=== PATIENT | female | born 1980 | race American Indian/Alaskan Native ===

== ENCOUNTER 2018-12-14 07:49 | Emergency (ER) | payer MEDICAID, OTHER ==
[2018-12-14 08:17] VITALS: BP 117/70
[2018-12-14] MEDS ORDERED: IBUPROFEN PO ONE (10:17)
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
== END 2018-12-14 10:54 | disposition home or self-care (01) ==
LOC: ED 07:49
DX: R51 Headache (principal); I10 Essential (primary) hypertension; Z87.891 Personal history of nicotine dependence; V89.2XXA Person injured in unspecified motor-vehicle accident, traffic, initial encounter; Y93.89 Activity, other specified; Y92.488 Other paved roadways as the place of occurrence of the external cause; Y99.8 Other external cause status
CPT/HCPCS: 99282

== ENCOUNTER 2019-09-14 08:43 | Emergency (ER) | payer BC ==
--- NOTE | 2019-09-14 09:24 | XRay Report ---
CHEST 2 VIEWS INDICATION / CLINICAL INFORMATION: Shortness of breath and cough for 2 days. COMPARISON: 02/23/2014. FINDINGS: SUPPORT DEVICES: None. HEART / MEDIASTINUM: The heart size and pulmonary vasculature are normal. LUNGS / PLEURA: No significant pulmonary or pleural abnormality. No pneumothorax. ADDITIONAL FINDINGS: No significant additional findings. IMPRESSION: No acute abnormality or significant change. Signer Name: Raghu Castorena MD Signed: 09/14/2019 9:20 AM Workstation Name: [email or web address]
[2019-09-14 11:54] VITALS: BP 119/68
--- NOTE | 2019-09-14 12:02 | Emergency Department Report ---
- General Chief Complaint: Upper Respiratory Infection Stated Complaint: CHEST PAIN/SOB Time Seen by Provider: 09/14/19 11:37 Source: patient Mode of arrival: Ambulatory Limitations: No Limitations - History of Present Illness Initial Comments: 39 yo F w/ hx of fibromyalgia presents to ED w/ report of dry cough, hoarse voice, nasal congestion x 2 days. Pt denies fever or chills. States did not take any OTC meds. Pt reports mild SOB, wheezing. MD Complaint: cough, nasal congestion -: days(s) (2) Severity: moderate Consistency: intermittent Improves With: nothing Worsens With: nothing Associated Symptoms: headache, nasal congestion, shortness of breath, hoarseness. denies: fever, chills, chest pain, nausea, vomiting Treatments Prior to Arrival: none - Related Data Previous Rx's Medication Instructions Recorded Last Taken Type Pnv,Calcium 72/Iron/Folic Acid 1 each PO QDAY #30 tablet 07/21/15 07/04/16 09:00 Rx [ Vitamin with Low Iron] 1 Ibuprofen [Motrin 800 MG tab] 800 mg PO Q8H PRN #30 tablet 07/06/16 Unknown Rx Vit-Fe Fumar-FA [ 1 tab PO QDAY #30 tablet 07/06/16 Unknown Rx Vitamin] oxyCODONE /ACETAMINOPHEN [Percocet 1 tab PO Q6HR PRN #40 tablet 07/06/16 Unknown Rx 5/325] Cyclobenzaprine [Flexeril] 10 mg PO QHS PRN #10 tablet 12/14/18 Unknown Rx Ibuprofen [Motrin] 600 mg PO Q8H PRN #20 tablet 12/14/18 Unknown Rx Albuterol Sulfate [Proventil Hfa] 2 puff IH Q4HR PRN #1 hfa.aer.ad 09/14/19 Unknown Rx Benzonatate [Tessalon Perles] 100 mg PO Q8HR PRN #20 capsule 09/14/19 Unknown Rx Fluticasone [Flonase] 1 spray NS QDAY #1 bottle 09/14/19 Unknown Rx Naproxen [Naprosyn] 500 mg PO BID #20 tablet 09/14/19 Unknown Rx Allergies Allergy/AdvReac Type Severity Reaction Status Date / Time No Known Allergies Allergy Verified 07/21/15 07:52 ED Review of Systems ROS: Stated complaint: CHEST PAIN/SOB Other details as noted in HPI Comment: All other systems reviewed and negative Constitutional: denies: chills, fever ENT: congestion Respiratory: cough, shortness of breath Cardiovascular: denies: chest pain Gastrointestinal: denies: nausea, vomiting, diarrhea ED Past Medical Hx - Past Medical History Previous Medical History?: Yes Hx Hypertension: Yes Hx Diabetes: No Hx Deep Vein Thrombosis: No Hx Renal Disease: No Hx Sickle Cell Disease: No Hx Seizures: No Hx Asthma: No Hx COPD: No Hx HIV: No Additional medical history: Fibromyalgia - Surgical History Past Surgical History?: No - Social History Smoking Status: Former Smoker Substance Use Type: None - Medications Home Medications: Home Medications Medication Instructions Recorded Confirmed Last Taken Type Pnv,Calcium 72/Iron/Folic Acid 1 each PO QDAY #30 tablet 07/21/15 07/04/16 07/04/16 09:00 Rx [ Vitamin with Low Iron] 1 Ibuprofen [Motrin 800 MG tab] 800 mg PO Q8H PRN #30 tablet 07/06/16 Unknown Rx Vit-Fe Fumar-FA [ 1 tab PO QDAY #30 tablet 07/06/16 Unknown Rx Vitamin] oxyCODONE /ACETAMINOPHEN [Percocet 1 tab PO Q6HR PRN #40 tablet 07/06/16 Unkn own Rx 5/325] Cyclobenzaprine [Flexeril] 10 mg PO QHS PRN #10 tablet 12/14/18 Unknown Rx Ibuprofen [Motrin] 600 mg PO Q8H PRN #20 tablet 12/14/18 Unknown Rx Albuterol Sulfate [Proventil Hfa] 2 puff IH Q4HR PRN #1 hfa.aer.ad 09/14/19 Unknown Rx Benzonatate [Tessalon Perles] 100 mg PO Q8HR PRN #20 capsule 09/14/19 Unknown Rx Fluticasone [Flonase] 1 spray NS QDAY #1 bottle 09/14/19 Unknown Rx Naproxen [Naprosyn] 500 mg PO BID #20 tablet 09/14/19 Unknown Rx ED Physical Exam - General Limitations: No Limitations General appearance: alert, in no apparent distress - Head Head exam: Present: atraumatic, normocephalic - Eye Eye exam: Present: normal appearance, EOMI - ENT ENT exam: Present: mucous membranes moist - Neck Neck exam: Present: normal inspection - Respiratory Respiratory exam: Present: normal lung sounds bilaterally. Absent: respiratory distress, wheezes - Cardiovascular Cardiovascular Exam: Present: regular rate, normal rhythm - GI/Abdominal GI/Abdominal exam: Present: soft. Absent: distended, tenderness - Extremities Exam Extremities exam: Present: normal inspection - Neurological Exam Neurological exam: Present: alert, oriented X3 - Psychiatric Psychiatric exam: Present: normal affect, normal mood - Skin Skin exam: Present: warm, dry, intact, normal color ED Course Vital Signs 09/14/19 09/14/19 08:47 11:52 Temperature 98.1 F 98.4 F Pulse Rate 69 66 Respiratory 16 18 Rate Blood Pressure 124/70 Blood Pressure 119/68 [Left] O2 Sat by Pulse 99 98 Oximetry ED Medical Decision Making - Radiology Data Radiology results: report reviewed, image reviewed - Medical Decision Making 39 yo F w/ URI sx's. Vitals are normal. Pt is afebrile. Pt in no resp distres s, O2 sats normal. CXR unremarkable. Outpt f/u advised. Prescriptions given. Return precautions given. - Differential Diagnosis URI, pneumonia, flu Critical care attestation.: If time is entered above; I have spent that time in minutes in the direct care of this critically ill patient, excluding procedure time. ED Disposition Clinical Impression: URI (upper respiratory infection) Disposition: TO HOME OR SELFCARE Is pt being admited?: No Condition: Stable Instructions: Upper Respiratory Infection (ED) Prescriptions: Fluticasone [Flonase] 1 spray NS QDAY #1 bottle Naproxen [Naprosyn] 500 mg PO BID #20 tablet Albuterol Sulfate [Proventil Hfa] 2 puff IH Q4HR PRN #1 hfa.aer.ad PRN Reason: Wheezing Benzonatate [Tessalon Perles] 100 mg PO Q8HR PRN #20 capsule PRN Reason: Cough Referrals: PRIMARY CARE, [Primary Care Provider] - 3-5 Days [facility] [Provider Group] - 3-5 Days Time of Disposition: 12:02
== END 2019-09-14 12:37 | disposition home or self-care (01) ==
LOC: ED 08:43
DX: J06.9 Acute upper respiratory infection, unspecified (principal); I10 Essential (primary) hypertension; Z87.891 Personal history of nicotine dependence; Z79.1 Long term (current) use of non-steroidal anti-inflammatories (NSAID); Z79.899 Other long term (current) drug therapy
CPT/HCPCS: 71046

== ENCOUNTER 2021-01-05 09:26 | Emergency (ER) | payer OTHER, MEDICAID ==
[2021-01-05 09:37] VITALS: BP 116/78
--- NOTE | 2021-01-05 10:31 | Emergency Department Report ---
- General Chief Complaint: Pain General Stated Complaint: BODY ACHE Time Seen by Provider: 01/05/21 10:20 Source: patient Mode of arrival: Ambulatory Limitations: No Limitations - History of Present Illness Initial Comments: Patient is a 40-year-old female presents emergency room with complaints of nasal congestion, rhinorrhea, postnasal drip, sinus pressure that began 5 days ago. She has associated chills, generalized body aches, occasional mild dry cough, throat discomfort. She states initially 5 days ago she had a few episodes of vomiting and diarrhea without has since completely resolved and only lasted for 24 hours. She states that 2 weeks ago her daughter was sick with a URI. She states that a week ago her son had a sinus infection. She denies any fever, ear pain, abdominal pain, chest pain, shortness of breath. No past medical history. no Allergies to medications. She states that she has been taking [id number]-[id number] medications without much relief. She states that she did receive the COVID-19 vaccine. She states that she was tested for Covid 4 days ago and reports it was negative. - Related Data Previous Rx's Medication Instructions Recorded Last Taken Type Pnv,Calcium 72/Iron/Folic Acid 1 each PO QDAY #30 tablet 07/21/15 07/04/16 09:00 Rx [ Vitamin with Low Iron] 1 Ibuprofen [Motrin 800 MG tab] 800 mg PO Q8H PRN #30 tablet 07/06/16 Unknown Rx Vit-Fe Fumar-FA [ 1 tab PO QDAY #30 tablet 07/06/16 Unknown Rx Vitamin] oxyCODONE /ACETAMINOPHEN [Percocet 1 tab PO Q6HR PRN #40 tablet 07/06/16 Unknown Rx 5/325] Cyclobenzaprine [Flexeril] 10 mg PO QHS PRN #10 tablet 12/14/18 Unknown Rx Ibuprofen [Motrin] 600 mg PO Q8H PRN #20 tablet 12/14/18 Unknown Rx Albuterol Sulfate [Proventil Hfa] 2 puff IH Q4HR PRN #1 hfa.aer.ad 09/14/19 Unknown Rx Benzonatate [Tessalon Perles] 100 mg PO Q8HR PRN #20 capsule 09/14/19 Unknown Rx Fluticasone [Flonase] 1 spray NS QDAY #1 bottle 09/14/19 Unknown Rx Naproxen [Naprosyn] 500 mg PO BID #20 tablet 09/14/19 Unknown Rx Ibuprofen [Motrin] 600 mg PO Q6H PRN #60 tablet 07/07/20 Unknown Rx oxyCODONE /ACETAMINOPHEN [Percocet 1 tab PO Q6HR PRN #30 tablet 07/08/20 Unknown Rx 5/325] Amoxicillin/Potassium Clav 1 each PO BID 10 Days #20 tablet 01/05/21 Unknown Rx [Augmentin 875-125 Tablet] Fluticasone [Flonase] 1 spray NS QDAY #1 bottle 01/05/21 Unknown Rx Naproxen [EC-Naprosyn] 375 mg PO BID PRN #20 tablet.dr 01/05/21 Unknown Rx guaiFENesin ER [Mucinex ER] 600 mg PO BID #14 tablet.er 01/05/21 Unknown Rx Allergies Allergy/AdvReac Type Severity Reaction Status Date / Time No Known Allergies Allergy Verified 07/21/15 07:52 ED Review of Systems ROS: Stated complaint: BODY ACHE Other details as noted in HPI Comment: All other systems reviewed and negative ED Past Medical Hx - Past Medical History Previous Medical History?: Yes Hx Hypertension: Yes Hx Heart Attack/AMI: No Hx Congestive Heart Failure: No Hx Diabetes: No Hx Deep Vein Thrombosis: No Hx Renal Disease: No Hx Sickle Cell Disease: No Hx Seizures: No Hx Asthma: No Hx COPD: No Hx HIV: No Additional medical history: Fibromyalgia - Surgical History Additional Surgical History: , TL - Social History Smoking Status: Former Smoker - Medications Home Medications: Home Medications Medication Instructions Recorded Confirmed Last Taken Type Pnv,Calcium 72/Iron/Folic Acid 1 each PO QDAY #30 tablet 07/21/15 07/07/20 07/04/16 09:00 Rx [ Vitamin with Low Iron] 1 Ibuprofen [Motrin 800 MG tab] 800 mg PO Q8H PRN #30 tablet 07/06/16 07/07/20 Unknown Rx Vit-Fe Fumar-FA [ 1 tab PO QDAY #30 tablet 07/06/16 07/07/20 Unknown Rx Vitamin] oxyCODONE /ACETAMINOPHEN [Percocet 1 tab PO Q6HR PRN #40 tablet 07/06/16 07/07/20 Unknown Rx 5/325] Cyclobenzaprine [Flexeril] 10 mg PO QHS PRN #10 tablet 12/14/18 07/07/20 Unknown Rx Ibuprofen [Motrin] 600 mg PO Q8H PRN #20 tablet 12/14/18 07/07/20 Unknown Rx Albuterol Sulfate [Proventil Hfa] 2 puff IH Q4HR PRN #1 hfa.aer.ad 09/14/19 07/07/20 Unknown Rx Benzonatate [Tessalon Perles] 100 mg PO Q8HR PRN #20 capsule 09/14/19 07/07/20 Unknown Rx Fluticasone [Flonase] 1 spray NS QDAY #1 bottle 09/14/19 07/07/20 Unknown Rx Naproxen [Naprosyn] 500 mg PO BID #20 tablet 09/14/19 07/07/20 Unknown Rx Ibuprofen [Motrin] 600 mg PO Q6H PRN #60 tablet 07/07/20 Unknown Rx oxyCODONE /ACETAMINOPHEN [Percocet 1 tab PO Q6HR PRN #30 tablet 07/08/20 Unknown Rx 5/325] Amoxicillin/Potassium Clav 1 each PO BID 10 Days #20 tablet 01/05/21 Unknown Rx [Augmentin 875-125 Tablet] Fluticasone [Flonase] 1 spray NS QDAY #1 bottle 01/05/21 Unknown Rx Naproxen [EC-Naprosyn] 375 mg PO BID PRN #20 tablet.dr 01/05/21 Unknown Rx guaiFENesin ER [Mucinex ER] 600 mg PO BID #14 tablet.er 01/05/21 Unknown Rx ED Physical Exam - General Limitations: No Limitations General appearance: alert, in no apparent distress - Head Head exam: Present: atraumatic, normocephalic - Eye Eye exam: Present: normal appearance - ENT ENT exam: Present: normal orophraynx, mucous membranes moist, TM's normal bilaterally, normal external ear exam, other (left nasal turbinates are edematous and erythematous with mucus drainage, right nasal turbinates are edematous, no drainage visualized ) - Respiratory Respiratory exam: Present: normal lung sounds bilaterally. Absent: respiratory distress, wheezes, rales, rhonchi, stridor, chest wall tenderness, accessory muscle use, decreased breath sounds, prolonged expiratory - Cardiovascular Cardiovascular Exam: Present: regular rate, normal rhythm, normal heart sounds. Absent: systolic murmur, diastolic murmur, rubs, gallop - Neurological Exam Neurological exam: Present: alert, oriented X3 - Psychiatric Psychiatric exam: Present: normal affect, normal mood - Skin Skin exam: Present: warm, dry, intact ED Course Vital Signs 01/05/21 09:34 Temperature 97.6 F Pulse Rate 74 Respiratory 17 Rate Blood Pressure 116/78 [Right] O2 Sat by Pulse 100 Oximetry ED Medical Decision Making - Medical Decision Making Patient is a 40-year-old female presents emergency room with complaints of nasal congestion, rhinorrhea, postnasal drip, sinus pressure that began 5 days ago. She has associated chills, generalized body aches, occasional mild dry cough, throat discomfort. She states initially 5 days ago she had a few episodes of vomiting and diarrhea without has since completely resolved and only lasted for 24 hours. She states that 2 weeks ago her daughter was sick with a URI. She states that a week ago her son had a sinus infection. She denies any fever, ear pain, abdominal pain, chest pain, shortness of breath. No past medical history. no Allergies to medications. She states that she has been taking [id number] medications without much relief. She states that she did receive the COVID-19 vaccine. She states that she was tested for Covid 4 days ago and reports it was negative. vitals are normal. on exam:left nasal turbinates are edematous and erythematous with mucus drainage, right nasal turbinates are edematous, no drainage visualized, breath sounds are clear bilaterally, no wheezing, no rales, no rhonchi. Examination appears consistent with sinusitis. Patient given prescriptions. Advised patient Please take medication as prescribed. Increase your fluid intake. Follow-up with her primary care doctor. Return to emergency room for any new or worsening symptoms. Critical care attestation.: If time is entered above; I have spent that time in minutes in the direct care of this critically ill patient, excluding procedure time. ED Disposition Clinical Impression: Acute sinusitis Qualifiers: Sinusitis location: unspecified location Recurrence: non-recurrent Qualified Code(s): J01.90 - Acute sinusitis, unspecified Disposition: TO HOME OR SELFCARE Is pt being admited?: No Does the pt Need Aspirin: No Condition: Stable Instructions: Sinusitis, Adult, [id number] Additional Instructions: Please take medication as prescribed. Increase your fluid intake. Follow-up with her primary care doctor. Return to emergency room for any new or worsening symptoms. Prescriptions: Amoxicillin/Potassium Clav [Augmentin 875-125 Tablet] 1 each PO BID 10 Days #20 tablet Naproxen [EC-Naprosyn] 375 mg PO BID PRN #20 tablet.dr VERMA Reason: pain Fluticasone [Flonase] 1 spray NS QDAY #1 bottle guaiFENesin ER [Mucinex ER] 600 mg PO BID #14 tablet.er Referrals: JEAN PIERRE BECKER MD [Staff Physician] - 3-5 Days [facility] [Provider Group] - 3-5 Days [facility], [LAB/CONTRACT] - 3-5 Days [facility] [Outside] - 3-5 Days Forms: Work/School Release Form(ED) Time of Disposition: 10:30 Print Language: JAMA[place]
== END 2021-01-05 16:12 | disposition home or self-care (01) ==
LOC: ED 09:26
DX: J01.90 Acute sinusitis, unspecified (principal); I10 Essential (primary) hypertension; M79.7 Fibromyalgia; Z98.890 Other specified postprocedural states; Z87.891 Personal history of nicotine dependence; Z79.899 Other long term (current) drug therapy
CPT/HCPCS: 99281; 99282